=== PATIENT | female | born 1965 | race African-American/Black ===

== ENCOUNTER 2016-10-10 14:05 | Emergency (ER) | payer SELFPAY ==
[~2016-10-10] VITALS: Ht 160 cm; Wt 65.0 kg
[2016-10-10] MEDS ORDERED: IBUPROFEN 600MG TABLET PO ONE (15:00)
[2016-10-10 15:24] LABS: BASOPHILS % 0.3 % (0.0-2.0); EOSINOPHILS % 1.4 % (0.0-5.0); HEMOGLOBIN. 13.7 g/dL (12.0-16.0); LYMPHOCYTES % 17.5 % (20.0-50.0); MEAN CORPUSCULAR HEMOGLOBIN 30.3 pg (28.0-32.0); MEAN CORPUSCULAR HGB CONC 32.7 g/dL (31.0-37.0); MEAN CORPUSCULAR VOLUME 92.8 fL (81.0-99.0); MEAN PLATELET VOLUME 9.4 fl (7.4-10.4); MONOCYTES % 8.4 % (2.0-8.0); NEUTROPHILS % 72.4 % (40.0-76.0); PLATELET 179 x1000/uL (130-400); RED BLOOD CELL COUNT 4.53 mill/uL (4.2-5.4); RED CELL DISTRIBUTION WIDTH 14.2 % (11.6-14.6)
[2016-10-10] MEDS ORDERED: CEFTRIAXONE SODIUM 1 G/VIAL IM ONE (15:30)
[2016-10-10] MEDS ORDERED: LIDOCAINE HCL 1% 20ML VIAL (Pyxis) INJ INFIL ONE ×2 (15:30→16:45)
[2016-10-10 15:54] LABS: CHLORIDE 111 mEq/L (98-107); INDEX HEMOLYSI 1 (1-3); INDEX ICTERIC 1 (1-4); INDEX LIPEMIC 1 (1-3)
[2016-10-10 15:58] LABS: CALCIUM 8.5 mg/dL (8.5-10.1); UREA NITROGEN BLOOD 12 mg/dL (7-21)
[2016-10-10 16:02] LABS: ANION GAP 9; CARBON DIOXIDE 27 mEq/L (21-32); ETHANOL BLOOD < 10 mg/dL; eGFR > 60 mL/min (>60)
[2016-10-10 16:06] LABS: ACETAMINOPHEN < 2 ug/mL (10-30)
[2016-10-10 16:26] LABS: *AMPHETAMINES SCREEN URINE NEGATIVE (NEGATIVE); *BARBITURATES SCREEN URINE NEGATIVE (NEGATIVE); *BENZODIAZEPINES SCREEN URINE NEGATIVE (NEGATIVE); *COCAINE SCREEN URINE PRESUMTIVE POSITIVE (NEGATIVE); CANNABINOID URINE SCREEN NEGATIVE (NEGATIVE); ECSTASY MDMA SCREEN URINE NEGATIVE (NEGATIVE); METHADONE URINE SCREEN NEGATIVE (NEGATIVE); OPIATES URINE SCREEN PRESUMTIVE POSITIVE (NEGATIVE); PHENCYCLIDINE URINE SCREEN PRESUMTIVE POSITIVE (NEGATIVE)
[2016-10-10] MEDS ORDERED: ACETAMINOPHEN WITH CODEINE 300/30MG TABLET PO ONE (17:00)
[2016-10-10] MEDS ORDERED: CEPHALEXIN 500MG CAPSULE PO ONE (21:15)
[2016-10-10] MEDS ORDERED: SULFAMETHOXAZOLE/TRIMETHOPRIM 800/160MG TABLET PO ONE (21:15)
[2016-10-11] MEDS ORDERED: BENAZEPRIL 20MG TABLET PO ONE (06:45)
[2016-10-11] MEDS ORDERED: CLONIDINE 0.1MG TABLET PO ONE (08:30)
[2016-10-11] MEDS ORDERED: ONDANSETRON 4MG ODT PO ONE (12:30)
[2016-10-11 14:14] VITALS: BP 143/88
== END 2016-10-11 14:20 | disposition home or self-care (01) ==
LOC: ER 14:05
DX: L02.413 Cutaneous abscess of right upper limb (principal); F14.10 Cocaine abuse, uncomplicated; F11.10 Opioid abuse, uncomplicated; F16.10 Hallucinogen abuse, uncomplicated; I10 Essential (primary) hypertension; Z59.0 Homelessness; Z79.899 Other long term (current) drug therapy
CPT/HCPCS: 10060; 36415; 73060; 80048; 80305; 80329; 85025; 96372; 99285; G0482; J0696; J3490; Q0162; Z7610; 80307

== ENCOUNTER 2019-03-21 14:52 | Emergency (ER) | payer MEDICAID ==
[~2019-03-21] VITALS: Ht 167.6 cm; Wt 95.0 kg
[2019-03-21] MEDS ORDERED: SODIUM CHLORIDE 0.9% 1,000 ML IV ONE (16:26)
[2019-03-21 17:30] LABS: BASOPHILS % 0.3 % (0.0-2.0); EOSINOPHILS % 0.6 % (0.0-5.0); HEMOGLOBIN. 16.8 g/dL (12.0-16.0); LYMPHOCYTES % 38.5 % (20.0-50.0); MEAN CORPUSCULAR HEMOGLOBIN 30.9 pg (28.0-32.0); MEAN CORPUSCULAR VOLUME 97.4 fL (81.0-99.0); MEAN PLATELET VOLUME 10.6 fl (7.4-10.4); MONOCYTES % 9.6 % (2.0-8.0); PLATELET 155 x1000/uL (130-400); RED BLOOD CELL COUNT 5.44 mill/uL (4.2-5.4); RED CELL DISTRIBUTION WIDTH 14.6 % (11.6-14.6)
[2019-03-21 17:38] LABS: CHLORIDE 108 mEq/L (98-107)
[2019-03-21 17:42] LABS: ETHANOL BLOOD 182 mg/dL
[2019-03-21] MEDS ORDERED: AMLODIPINE 5MG TABLET PO NR (20:30)
[2019-03-21] MEDS ORDERED: ONDANSETRON 4MG ODT PO ONE (21:00)
[2019-03-21] MEDS ORDERED: LORAZEPAM 1MG TABLET PO ONE (22:30)
[2019-03-21] MEDS ORDERED: LORAZEPAM 2MG/ML CPJ IV NR (23:30)
[2019-03-22 00:26] LABS: *BARBITURATES SCREEN URINE NEGATIVE (NEGATIVE); *BENZODIAZEPINES SCREEN URINE NEGATIVE (NEGATIVE); *COCAINE SCREEN URINE PRESUMTIVE POSITIVE (NEGATIVE); METHADONE URINE SCREEN NEGATIVE (NEGATIVE); OPIATES URINE SCREEN NEGATIVE (NEGATIVE)
[2019-03-22 00:27] LABS: *AMPHETAMINES SCREEN URINE NEGATIVE (NEGATIVE); CANNABINOID URINE SCREEN PRESUMTIVE POSITIVE (NEGATIVE); PHENCYCLIDINE URINE SCREEN NEGATIVE (NEGATIVE)
[2019-03-22] MEDS ORDERED: ENALAPRIL 2.5MG/2ML VIAL 2ML IV ONE (01:45)
[2019-03-22 07:10] VITALS: BP 163/107
== END 2019-03-22 07:16 | disposition home or self-care (01) ==
LOC: ER 14:52
DX: F10.129 Alcohol abuse with intoxication, unspecified (principal); I10 Essential (primary) hypertension; Y90.6 Blood alcohol level of 120-199 mg/100 ml
CPT/HCPCS: 36415; 80053; 80305; 80320; 85025; 96374; 99284; J3490; J7030; Q0162; J2060; G0480

== ENCOUNTER 2019-05-14 12:06 | Emergency (ER) | payer MEDICAID ==
[~2019-05-14] VITALS: Ht 167.6 cm; Wt 68.0 kg
[2019-05-14] MEDS ORDERED: OXYCODONE HCL/ACETAMINOPHEN 5/325MG TABLET PO ONE (14:15)
[2019-05-14 16:54] VITALS: BP 138/76
== END 2019-05-14 16:55 | disposition home or self-care (01) ==
LOC: ER 12:06
DX: R51 Headache (principal); M79.605 Pain in left leg; R22.0 Localized swelling, mass and lump, head; M79.89 Other specified soft tissue disorders; R10.9 Unspecified abdominal pain; I10 Essential (primary) hypertension; Z65.4 Victim of crime and terrorism; Y93.89 Activity, other specified; Y00.XXXA Assault by blunt object, initial encounter; Y92.488 Other paved roadways as the place of occurrence of the external cause; F17.210 Nicotine dependence, cigarettes, uncomplicated; Z71.6 Tobacco abuse counseling
CPT/HCPCS: 70486; 73590; 74176; 82962; 99284; 99406

== ENCOUNTER 2021-07-19 00:43 | Emergency (ER) | payer MEDICAID ==
[~2021-07-19] VITALS: Ht 162.6 cm; Wt 70.0 kg
[2021-07-19] MEDS ORDERED: HYDROCODONE/ACETAMINOPHEN 10/325MG TABLET PO ONE (01:00)
[2021-07-19] MEDS ORDERED: KETOROLAC 15MG/ML VIAL IM ONE (01:00)
[2021-07-19 01:05] VITALS: BP 158/90
== END 2021-07-19 02:24 | disposition home or self-care (01) ==
LOC: ER 00:43
DX: M79.602 Pain in left arm (principal); I10 Essential (primary) hypertension; Z88.8 Allergy status to other drugs, medicaments and biological substances
CPT/HCPCS: 73070; 73120; 96372; 99284; J1885

== ENCOUNTER 2023-01-14 22:29 | Inpatient (IN) | payer MEDICAID, OTHER ==
[~2023-01-14] VITALS: Ht 162.6 cm; Wt 78.0 kg
[2023-01-14] MEDS ORDERED: MORPHINE SULFATE 4 MG/ML CPJ (NOT FOR IM USE) IV STA (23:20)
[2023-01-14] MEDS ORDERED: ONDANSETRON HCL 4MG/2ML INJ IV STA (23:20)
[2023-01-14] MEDS ORDERED: SODIUM CHLORIDE 0.9% 1,000 ML IV ONE (23:30)
[2023-01-14] MEDS ORDERED: TETANUS, DIPHTHERIA, PERTUSSIS VAC/PF 0.5ML (>10YR OLD) IM ONE (23:30)
[2023-01-14] MEDS ORDERED: LIDOCAINE HCL/EPINEPHRINE 1%-EPI 1:100,000 20 ML VIAL INFIL ONE (23:30)
[2023-01-14 23:44] LABS: BASOPHILS % 0.6 % (0.0-2.0); EOSINOPHILS % 1.7 % (0.0-5.0); HEMATOCRIT. 43.3 % (36.0-48.0); HEMOGLOBIN. 14.1 g/dL (12.0-16.0); MEAN CORPUSCULAR HEMOGLOBIN 31.1 pg (28.0-32.0); MEAN CORPUSCULAR VOLUME 95.4 fL (81.0-99.0); MEAN PLATELET VOLUME 10.8 fl (7.4-10.4); MONOCYTES % 9.5 % (2.0-8.0); NEUTROPHILS % 59.2 % (40.0-76.0); PLATELET 197 x1000/uL (130-400); RED BLOOD CELL COUNT 4.54 mill/uL (4.2-5.4); RED CELL DISTRIBUTION WIDTH 14.5 % (11.6-14.6)
[2023-01-14 23:55] LABS: PARTIAL THROMBOPLASTIN TIME 23.1 sec (23.4-31.0); PROTHROMBIN TIME 10.9 sec (9.6-11.0)
[2023-01-14 23:56] LABS: CHLORIDE 110 mEq/L (98-107)
[2023-01-15 00:06] LABS: ETHANOL BLOOD < 10 mg/dL
[2023-01-15] MEDS: LIDOCAINE HCL 2%/EPINEPHRINE 1:100,000 20 ML VIAL INFIL NR ×2 (00:15→01:57)
[2023-01-15 06:52] LABS: *AMPHETAMINES SCREEN URINE NEGATIVE (NEGATIVE); *BARBITURATES SCREEN URINE NEGATIVE (NEGATIVE); *BENZODIAZEPINES SCREEN URINE NEGATIVE (NEGATIVE); *COCAINE SCREEN URINE PRESUMTIVE POSITIVE (NEGATIVE); CANNABINOID URINE SCREEN NEGATIVE (NEGATIVE); METHADONE URINE SCREEN NEGATIVE (NEGATIVE); OPIATES URINE SCREEN PRESUMTIVE POSITIVE (NEGATIVE); PHENCYCLIDINE URINE SCREEN PRESUMTIVE POSITIVE (NEGATIVE)
[2023-01-15 09:00] VITALS: BP 108/54
[2023-01-15 12:00] VITALS: BP 167/91
[2023-01-15] MEDS ORDERED: ACETAMINOPHEN 325MG TABLET PO PRN (12:00)
[2023-01-15] MEDS ORDERED: THIAMINE HCL 100MG TABLET PO SCH (12:00)
[2023-01-15] MEDS ORDERED: ONDANSETRON HCL 4MG/2ML INJ IV PRN (12:00)
[2023-01-15] MEDS ORDERED: AMLODIPINE 10MG TABLET PO SCH (15:15)
[2023-01-15 16:00] VITALS: BP 141/84
[2023-01-15 19:51] VITALS: BP 153/93
== END 2023-01-15 23:17 | disposition short-term general hospital (02) | DRG 115 ==
LOC: ER 22:29 → MICUSO 01-15 01:23 → 8WST 01-15 10:20
PROVIDERS: ADMIT Internal Medicine; ATTEND Internal Medicine
PROC: 0CQ1XZZ Repair Lower Lip, External Approach (ICD-10-PCS; principal; 2023-01-14)
DX: S09.90XA Unspecified injury of head, initial encounter (principal); E44.0 Moderate protein-calorie malnutrition; R74.01 Elevation of levels of liver transaminase levels; W18.39XA Other fall on same level, initial encounter; F17.210 Nicotine dependence, cigarettes, uncomplicated; S01.511A Laceration without foreign body of lip, initial encounter; I10 Essential (primary) hypertension; Y09 Assault by unspecified means; R74.8 Abnormal levels of other serum enzymes; Z71.51 Drug abuse counseling and surveillance of drug abuser; Y93.89 Activity, other specified; Y92.89 Other specified places as the place of occurrence of the external cause; Y99.8 Other external cause status
CPT/HCPCS: 36415; 70486; 80053; 80305; 80320; 84484; 85025; 90715; 93005; 99285; J2270; J2405; J3490; J7030; G0480

== ENCOUNTER 2023-09-05 16:03 | Emergency (ER) | payer OTHER ==
[~2023-09-05] VITALS: Ht 154.9 cm; Wt 73.0 kg
[2023-09-05 16:19] VITALS: BP 181/75; RESP 16; TEMP 97.9; O2SAT 100
[2023-09-05 16:21] VITALS: PULSE 96
[2023-09-05] MEDS ORDERED: KETOROLAC 30MG/ML VIAL IM ONE (17:00)
[2023-09-05] MEDS ORDERED: KETOROLAC 30MG/ML VIAL IM NR (17:00)
[2023-09-05] MEDS ORDERED: NAPR-1176 MT (17:30)
== END 2023-09-05 18:57 | disposition home or self-care (01) ==
LOC: ER 16:03
DX: M25.562 Pain in left knee (principal); M25.512 Pain in left shoulder; I10 Essential (primary) hypertension; Z88.8 Allergy status to other drugs, medicaments and biological substances; Y04.0XXA Assault by unarmed brawl or fight, initial encounter; Y93.89 Activity, other specified; Y92.89 Other specified places as the place of occurrence of the external cause; Y99.8 Other external cause status
CPT/HCPCS: 99282

== ENCOUNTER 2024-04-07 06:42 | Emergency (ER) | payer OTHER ==
[~2024-04-07] VITALS: Ht 162.6 cm; Wt 54.0 kg
[~2024-04-07 06:42] MED LIST: NAPR-1176 MT
[2024-04-07 06:56] VITALS: BP 215/139; PULSE 104; RESP 18; TEMP 98.2; O2SAT 99
== END 2024-04-07 07:08 | disposition left against medical advice (07) ==
LOC: ER 06:42
DX: R07.89 Other chest pain (principal); R05.9 Cough, unspecified; Z53.21 Procedure and treatment not carried out due to patient leaving prior to being seen by health care provider
CPT/HCPCS: 93005

== ENCOUNTER 2024-07-30 13:23 | Emergency (ER) | payer OTHER ==
[~2024-07-30] VITALS: Ht 162.6 cm; Wt 64.0 kg
[2024-07-30 13:24] VITALS: O2SAT 100
[2024-07-30] MEDS ORDERED: ACETAMINOPHEN 500MG TABLET PO ONE (14:15)
[2024-07-30 19:56] VITALS: BP 151/92; PULSE 87; RESP 20; TEMP 36.78072; O2SAT 100
== END 2024-07-30 23:21 | disposition home or self-care (01) ==
LOC: ER 13:31
DX: F14.10 Cocaine abuse, uncomplicated (principal); I10 Essential (primary) hypertension; Z88.8 Allergy status to other drugs, medicaments and biological substances
CPT/HCPCS: 99283